=== PATIENT | male | born 1975 | race Hispanic/Latino ===

== ENCOUNTER 2020-08-23 10:36 | Emergency (ER) | payer SELFPAY ==
[2020-08-23] MEDS ORDERED: NA BORATE/BORIC AC/H2O/NACL 120 ML OPHTH IRRIG SOLN ONE (10:51)
[2020-08-23] MEDS ORDERED: TETRACAINE HCL 0.5% 4 ML OPHTH SOLN ONE (10:51)
[2020-08-23] MEDS ORDERED: FLUORESCEIN SODIUM 1 STRIP STRIP ONE (10:52)
[2020-08-23] MEDS ORDERED: ERYTHROMYCIN BASE 0.5% OPHTH OINT 1 GM TUBE ONE (11:19)
== END 2020-08-23 11:28 | disposition home or self-care (01) ==
LOC: EDH 10:36
DX: S05.02XA Injury of conjunctiva and corneal abrasion without foreign body, left eye, initial encounter (principal); Z72.0 Tobacco use; X58.XXXA Exposure to other specified factors, initial encounter; Y93.89 Activity, other specified; Y92.89 Other specified places as the place of occurrence of the external cause; Y99.8 Other external cause status